=== PATIENT | female | born 1980 | race Caucasian/White ===

== ENCOUNTER 2020-02-08 09:41 | Outpatient (CLI) | payer OTHER, SELFPAY ==
--- NOTE | 2020-02-08 10:04 | EST_ITS ---
Patient Info Name: Noemi De La Cruz Age: 39 years : 1980 Gender: Female Ht: 67 in Wt: 219 lbs BSA: 2.20 m2 Exam Date: 02/08/2020 10:23 AM Exam Location: [facility] Stress Patient Status: Outpatient Admit Date: 02/08/2020 Staff Ordering Physician: Aleta Ortega Attending Provider: Aleta Ortega Exercise Technologist: Karrie Banegas RDCS Exercise Physician: Roosevelt Delarosa DO Exam Type: CA stress test treadmill Study Info Indications R07.9 - Chest pain, unspecified A treadmill exercise stress test was performed. Summary 1. 1. Negative Constantin exercise stress test for ischemic ST changes by ECG criteria. 2. 2. Good functional capacity, achieving 12 METs of workload. 3. 3. Appropriate HR response to exercise. 4. 4. Appropriate HR recovery at 1 minute post exercise. 5. 5. No imaging with stress testing. 6. 6. Patient informed of the above results. Protocol: Constantin Stress ECG Details Stage: REST Duration (min): 9 min : 59 sec Speed (mph): 0.0 Grade (%): 0 HR (bpm): 74 SBP (mmHg): 110 DBP (mmHg): 66 METS: --- Stage: REST Duration (min): 10 min : 11 sec Speed (mph): 0.0 Grade (%): 0 HR (bpm): 76 SBP (mmHg): 110 DBP (mmHg): 66 METS: --- Stage: STAGE 1 Duration (min): 1 min : 0 sec Speed (mph): 1.7 Grade (%): 10 HR (bpm): 109 SBP (mmHg): 110 DBP (mmHg): 66 METS: --- Stage: STAGE 1 Duration (min): 2 min : 0 sec Speed (mph): 1.7 Grade (%): 10 HR (bpm): 106 SBP (mmHg): 110 DBP (mmHg): 66 METS: --- Stage: STAGE 1 Duration (min): 3 min : 0 sec Speed (mph): 1.7 Grade (%): 10 HR (bpm): 111 SBP (mmHg): 146 DBP (mmHg): 79 METS: --- Stage: STAGE 2 Duration (min): 1 min : 0 sec Speed (mph): 2.5 Grade (%): 12 HR (bpm): 121 SBP (mmHg): 146 DBP (mmHg): 79 METS: --- Stage: STAGE 2 Duration (min): 2 min : 0 sec Speed (mph): 2.5 Grade (%): 12 HR (bpm): 121 SBP (mmHg): 173 DBP (mmHg): 79 METS: --- Stage: STAGE 2 Duration (min): 3 min : 0 sec Speed (mph): 2.5 Grade (%): 12 HR (bpm): 121 SBP (mmHg): 173 DBP (mmHg): 79 METS: --- Stage: STAGE 3 Duration (min): 1 min : 0 sec Speed (mph): 3.4 Grade (%): 14 HR (bpm): 138 SBP (mmHg): 142 DBP (mmHg): 78 METS: --- Stage: STAGE 3 Duration (min): 2 min : 0 sec Speed (mph): 3.4 Grade (%): 14 HR (bpm): 150 SBP (mmHg): 142 DBP (mmHg): 78 METS: --- Stage: STAGE 3 Duration (min): 3 min : 0 sec Speed (mph): 3.4 Grade (%): 14 HR (bpm): 161 SBP (mmHg): 139 DBP (mmHg): 75 METS: --- Stage: STAGE 4 Duration (min): 1 min : 0 sec Speed (mph): 4.2 Grade (%): 16 HR (bpm): 171 SBP (mmHg): 139 DBP (mmHg): 75 METS: --- Stage: STAGE 4 Duration (min): 1 min : 0 sec Speed (mph):
== END 2020-02-08 09:42 | disposition home or self-care (01) ==
LOC: ANHCARD 09:43
PROVIDERS: PCP Family Medicine; Visit Provider Physician Assistant Medical
DX: R07.9 Chest pain, unspecified (principal)
CPT/HCPCS: 93017

== ENCOUNTER → 2020-09-09 15:14 | Outpatient (CLI) | payer OTHER, SELFPAY ==
--- NOTE | ~2020-09-09 | MM_ITS ---
EXAMINATION: MM screening [facility]in BI w abdoul HISTORY: Screening TECHNIQUE: Craniocaudal and mediolateral oblique 3-D tomosynthesis images were obtained and synthetic 2-D images were generated. CAD analysis was submitted and interpreted. COMPARISON: No prior mammogram is available for comparison at this institution. BREAST PARENCHYMAL COMPOSITION: There are scattered areas of fibroglandular density. FINDINGS: There is no evidence of suspicious mass, calcification, or architectural distortion to sugg est malignancy in either breast. There has been no suspicious interval change. IMPRESSION: 1. No mammographic evidence of malignancy. 2. Recommend routine screening mammography in one year. BI-RADS Category 1: Negative Reviewed, dictated and finalized at location A. URCE DEVELOPMENT DIRECTOR
== END ==
PROVIDERS: Visit Provider Obstetrics & Gynecology
DX: Z12.31 Encounter for screening mammogram for malignant neoplasm of breast (principal)
CPT/HCPCS: 77063; 77067

== ENCOUNTER → 2021-09-11 16:13 | Outpatient (CLI) | payer OTHER, SELFPAY ==
--- NOTE | ~2021-09-11 | MM_ITS ---
EXAMINATION: MM screening [facility] BI w abdoul HISTORY: Screening TECHNIQUE: Craniocaudal and mediolateral oblique 3-D tomosynthesis images were obtained and synthetic 2-D images were generated. CAD analysis was submitted and interpreted. COMPARISON: 09/09/2020 BREAST PARENCHYMAL COMPOSITION: There are scattered areas of fibroglandular density. FINDINGS: There is no evidence of suspicious mass, calcification, or architectural distortion to sugg est malignancy in either breast. There has been no suspicious interval change. IMPRESSION: 1. No mammographic evidence of malignancy. 2. Recommend routine screening mammography in one year. BI-RADS Category 1: Negative Reviewed, dictated and finalized at location A. AULIC CORRUGATING MACHINE OPERATOR
== END ==
PROVIDERS: Visit Provider Obstetrics & Gynecology
DX: Z12.31 Encounter for screening mammogram for malignant neoplasm of breast (principal)
CPT/HCPCS: 77063; 77067

== ENCOUNTER 2022-08-23 16:22 | Outpatient (CLI) | payer OTHER, SELFPAY ==
[2022-08-23 16:31] LABS: Hematocrit 41.5 % (37.0-47.0); Hemoglobin 13.8 g/dL (12.0-15.0); Mean Corpuscular HGB Conc 33.3 g/dl (32-36); Mean Corpuscular Volume 90.2 fl (80-100); Mean Platelet Volume 11.1 fl (7.4-10.4); Platelet Count Result 246 k/mm3 (150-375); Red Cell Distribution Width 13.6 % (11.5-14.5); White Blood Count 7.9 K/mm3 (4.5-10.0)
== END 2022-08-23 16:23 | disposition home or self-care (01) ==
LOC: ANHLAB 16:23
PROVIDERS: PCP Family Medicine; Visit Provider Obstetrics & Gynecology
DX: R10.31 Right lower quadrant pain (principal); Z01.818 Encounter for other preprocedural examination
CPT/HCPCS: 36415; 85027; 86850; 86900; 86901

== ENCOUNTER 2022-08-30 00:34 | Day surgery (SDC) | payer OTHER, SELFPAY ==
[2022-08-16 17:17] VITALS: BMI 35.6
--- NOTE | 2022-08-16 17:41 | PC.NURSE ---
Report to the Outpatient Waiting Room, entrance under the green pavilion located off [facility], at 0630 on 08-30-22. Planned Procedure Time: 0830. Time changes happen often and if your time is changed the preop area will call you the afternoon before. - You and your visitor will be asked to self-screen and do not enter if you have any COVID symptoms. - Only one visitor is requested with a max of two and NO children visitors are allowed at this time. - The patient visitor may be requested to leave or wait in car when not with patient due to distancing restrictions. - A mask is optional within the hospital at this time. Patients may have clear liquids (water, carbonated beverages, clear teas, apple juice) until 3 hours prior to surgery with a maximum of 20 ounces. 0530 - No food from midnight until time of surgery - Infants may have breast milk until 4 hours before surgery, formula 6 hours prior to surgery. - Children will be allowed to drink immediately following surgery. If applicable, please bring a bottle or sippy cup to assist with drinking. Juice, water, soda, and popsicles are readily available. For infants on formula, please bring formula the day of surgery. Pacifiers are allowed. Take the following medications with a SIP of water the morning of surgery: Tramadol if needed Bring albuterol inhaler DOS if not DO NOT STOP ANY OF YOUR OTHER PRESCRIPTION MEDICATIONS PRIOR TO SURGERY ?EXCEPT THE FOLLOWING Medications to discontinue per physician: vitamins and supplements Date to take last dose: 08-27-22 Please no make-up, nail sammarinese, hairspray, perfume, deodorant, or body powder the day of surgery. No jewelry (including any body piercings) or valuables the day of surgery, leave them at home. Please take a shower or bath the night before, or the morning of, surgery with an antibacterial soap. Wear comfortable, loose fitting clothing. Children are encouraged to wear pajamas. - Jewelry must be removed prior to entering the operating room. Rings and piercings that are not removed may be cut off. - The hospital will not accept responsibility for valuables. - Please leave all valuables, including medications, at home the day of surgery. If you are going home after surgery, a licensed service parts driver must drive you home. - NO public transportation without another adult if you receive anesthesia. - We recommend that an adult stay with you for 24 hours following discharge. - We also recommend that you do not drive, make important decision, drink alcoholic beverages, or take any drugs that were not prescribed by your health care provider for at least 24 hours after your discharge time. For Pediatric surgeries, we recommend two adults accompany the child home. Follow any additional instructions given to you from your surgeon. If you or anyone in your household have experienced Covid symptoms in the past week, please notify your surgeon or the nurse liaison at the phone number below for possible testing. Telephone instructions given to Noemi De La Cruz and asked if any additional questions and then verbalized understanding. Patient advised to call surgeon office or pre surgery nurse liaison [phone] if any additional questions.
[2022-08-30] VITALS (8 sets, daily range): BP systolic 90–117; BP diastolic 43–75; PULSE 51–99; RESP 10–16; TEMP 36.3–36.4; O2SAT 96–100
--- NOTE | 2022-08-30 06:42 | WPDANESEPPF ---
Anes - Initial Pre Proc Eval Procedure: Operation Date: 08/30/22 08:00 Proposed Procedures p Robotic Assisted Laparoscopic Right Salpingo Oophorectomy - Alexis Domingo MD Date/Time: 08/30/22 06:42 Surgeon: Alexis Domingo MD Pre Op Diagnosis: right lower quad pain Patient Data Age: 42 Gender: F Height: 1.7 m Weight: 103.42 kg Allergies Allergy/AdvReac Type Severity Reaction Status Date / Time codeine Allergy Intermediate Nausea And Verified 08/21/22 09:20 Vomiting tramadol AdvReac Intermediate Dizziness Verified 08/21/22 09:20 Home Medications Medication Instructions Recorded Confirmed Type albuterol sulfate 90 mcg/actuation 1 inh inhalation Q4H PRN shortness 09/01/20 08/16/22 Rx aerosol inhaler of breath or wheezing #6.7 grams tramadol 50 mg tablet 50 mg PO Q6H PRN pain #20 tabs 07/26/22 08/16/22 Rx acidophilus 100 million 1 cap PO DAILY 08/16/22 08/16/22 History cell-pectin, citrus 10 mg capsule ascorbic acid (vitamin C) 250 mg 250 mg PO DAILY 08/16/22 08/16/22 History tablet cholecalciferol (vitamin D3) 125 125 mcg PO DAILY 08/16/22 08/16/22 History mcg (5,000 unit) tablet (Vitamin D3) multivit with minerals-iron 18 1 tablet PO DAILY 08/16/22 08/16/22 History mg-folic ac 400 mcg-vit K 25 mcg tablet (Adults Multivitamin) omega-3 fatty acids 1,250 mg PO DAILY 08/16/22 08/16/22 History Patient hx anesthesia problems: none Family hx anesthesia problems: none Results Review: All pre-operative results and documents have been reviewed as part of the pre-operative evaluation. [facility] Past Medical History Medical History BMI 35.0-35.9,adult Broken arm (~1986) COVID-19 History of broken collarbone (~2004) History of broken leg (~1991) Screening mammogram, encounter for Vaginal delivery 01/17/07 03/24/13 Surgical History Surgical History History of cholecystectomy (03/06/19) History of gynecologic surgery (11/01/16) hscope d&c/endometrial ablation/tubal ligation--menometrorrhagia, dysmenorrhea, undesired fertility--benign History of nasal surgery (~1995) History of tonsillectomy (~1996) History of tubal ligation (11/01/16) Family History Family History Father Family history of throat cancer Hypertension Mother Family history of malignant neoplasm of uterus Grandparent Diabetes mellitus maternal grandmother Other No family history of hypertension Social History Social History Smoking status: Never smoker Second hand tobacco smoke exposure: No Alcohol intake: current Alcohol use details: occasionally maybe monthly per patient Substance use: never Substance use type: does not use Living arrangements: other Additional living arrangements comments: Occupation/Education: occupation Additional occupation/education comments: teacher Gender identity (if verbalized by the patient): Female Sexual Orientation (if Verbalized by the Patient): Straight or Heterosexual Spiritual care concerns: No Anes - Eval Final PreProcedure Day of Procedure 08/30/22 06:42 Patient weight: obese Heart: regular rate and rhythm Lungs: clear to auscultation Airway: Mallampati scale class II Neurological: alert and oriented Last oral intake: >/= 8 hours ASA classification: II Emergent: no Anesthetic plan: proceed Anesthesia type and monitoring: general ETT and standard monitoring Results Review: All pre-operative results and documents have been reviewed as part of the pre-operative evaluation. Informed Consent: The patient's anesthetic plan and its attendant risks and benefits were discussed with the patient/family/POA. Questions were solicited and answers provided to the satisfaction of the patient/family/POA.
[2022-08-30] MEDS: KETOROLAC 15 MG/ML VIAL (*BKC) IV PUSH (06:45)
[2022-08-30] MEDS: LACTATED RINGERS 1,000 ML 30 ML IV CONT ×2 (06:45→09:08)
--- NOTE | 2022-08-30 06:48 | WPDHPUPDATE1 ---
History and Physical Update Update Date/Time: 08/30/22 06:48 History and Physical has been reviewed, including an updated exam of the patient. There are NO changes in the patient's condition. Risks, benefits, and alternatives have been discussed and questions answered. Patient agrees to proceed with procedure.
[2022-08-30] MEDS: ACETAMINOPHEN 500 MG TABLET 1000 MG PO (06:50)
[2022-08-30] MEDS: SCOPOLAMINE 1.5 MG PATCH TRANSDERM (06:59)
--- NOTE | 2022-08-30 08:58 | W.PM.PROC2 ---
Procedure Note - Detailed Date of Procedure 08/30/22 Pre-op Diagnosis right lower quad pain Post-op Diagnosis Same Procedure Performed 1. Robotic assisted laparoscopic right salpingo-oophorectomy Surgeon Alexis Domingo MD Anesthesia General Findings 1. Uterus mildly enlarged no abnormalities 2. Left adnexa with evidence of prior tubal removal 3. Right adnexa with ovarian cyst Description of Procedure patient was prepped and draped usual manner for this procedure. Cervical instruments were placed for uterine mobility later in the case. Abdominal trocar sites were placed under direct visualization and attached to the de Leo system. Instruments were placed under direct visualization. Surgeon moved to the console evaluation of the pelvis revealed findings as noted above. Using the cautery instrument the mesial salpinx was cauterized and cut and the right tube was removed. Infundibulopelvic ligament was then cauterized and cut the ovary was removed without difficulty. Wesly was placed over the surgical site though there was no bleeding. Gas was allowed to escape incisions approximated using 4-0 Monocryl the patient was sent to recovery room in stable condition. Estimated Blood Loss 10 Drains No Packing No Pathology Yes Complications No immediate complications Condition Stable Disposition PACU [facility] Billing Surgery - Charge Forward: Surgery Billing
[2022-08-30] MEDS: oxyCODONE HCL (*CRX) 2.5 MG TAB IR PO (10:10)
== END 2022-08-30 10:52 | disposition home or self-care (01) ==
PROVIDERS: PCP Family Medicine; Visit Provider Obstetrics & Gynecology
PROC: 8E0W4CZ Robotic Assisted Procedure of Trunk Region, Percutaneous Endoscopic Approach (ICD-10-PCS; CPT 49320; principal; 2022-08-30 08:00)
DX: N83.291 Other ovarian cyst, right side (principal); N83.8 Other noninflammatory disorders of ovary, fallopian tube and broad ligament; Z79.51 Long term (current) use of inhaled steroids; E66.9 Obesity, unspecified
CPT/HCPCS: 58661; 36415; 85027; 86850; 86900; 86901; 88305; A9270; J1100; J1885; J2250; J2405; J2704; J3010; J7030; J7120

== ENCOUNTER → 2022-11-03 07:45 | Outpatient (CLI) | payer OTHER, SELFPAY ==
--- NOTE | ~2022-11-03 | MM_ITS ---
EXAMINATION: MM screening [facility] BI w abdoul HISTORY: Screening mammogram TECHNIQUE: Craniocaudal and mediolateral oblique 3-D tomosynthesis images were obtained and synthetic 2-D images were generated. CAD analysis was submitted and interpreted. COMPARISON: 09/11/2021, 09/09/2020 BREAST PARENCHYMAL COMPOSITION: There are scattered areas of fibroglandular density. FINDINGS: No suspicious mass, calcification, or architectural distortion are identified in either markus ast to suggest malignancy. There has been no suspicious interval change. IMPRESSION: 1. No mammographic evidence of malignancy. 2. Recommend routine screening mammography in one year. BI-RADS Category 1: Negative Reviewed, dictated and finalized at location A.
== END ==
PROVIDERS: PCP Obstetrics & Gynecology; Visit Provider Obstetrics & Gynecology
DX: Z12.31 Encounter for screening mammogram for malignant neoplasm of breast (principal)
CPT/HCPCS: 77063; 77067

== ENCOUNTER 2023-11-14 14:41 | Outpatient (CLI) | payer OTHER, SELFPAY ==
--- NOTE | ~2023-11-14 | MM_ITS ---
EXAMINATION: MM screening [facility] BI w abdoul HISTORY: Screening mammogram TECHNIQUE: Craniocaudal and mediolateral oblique 3-D tomosynthesis images were obtained and synthetic 2-D images were generated. CAD analysis was submitted and interpreted. COMPARISON: November 03, 2022, September 11, 2021 bilateral screening mammogram examinations BREAST PARENCHYMAL COMPOSITION: There are scattered areas of fibroglandular density. FINDINGS: There is no evidence of suspicious mass, calcification, or architectural distortion to sugg est malignancy in either breast. There has been no suspicious interval change. IMPRESSION: 1. No mammographic evidence of malignancy. 2. Recommend routine screening mammography in one year. BI-RADS Category 1: Negative Reviewed, dictated and finalized at location B.
== END 2023-11-14 14:42 ==
LOC: MICIMG 14:42
PROVIDERS: PCP Obstetrics & Gynecology; Visit Provider Obstetrics & Gynecology
DX: Z12.31 Encounter for screening mammogram for malignant neoplasm of breast (principal)
CPT/HCPCS: 77063; 77067

== ENCOUNTER 2025-01-13 14:08 | Outpatient (CLI) | payer OTHER, SELFPAY ==
--- NOTE | ~2025-01-13 | MM_ITS ---
EXAMINATION: MM screening konstantin BI w abdoul HISTORY: Screening TECHNIQUE: Craniocaudal and mediolateral oblique 3-D tomosynthesis images were obtained and synthetic 2-D images were generated. CAD analysis was submitted and interpreted. COMPARISON: Comparison to multiple prior studies sequentially, with oldest reviewed study dated 11/2020. BREAST PARENCHYMAL COMPOSITION: Not dense: There are scattered areas of fibroglandular density. FINDINGS: There is no evidence of suspicious mass, calcification, or architectural distortion to sugg est malignancy in either breast. There has been no suspicious interval change. IMPRESSION: 1. No mammographic evidence of malignancy. 2. Recommend routine screening mammography in one year. BI-RADS Category 1: Negative Reviewed, dictated and finalized at location A.
== END 2025-01-13 14:09 | disposition home or self-care (01) ==
LOC: MICIMG 14:08
PROVIDERS: PCP Obstetrics & Gynecology; Visit Provider Obstetrics & Gynecology
DX: Z12.31 Encounter for screening mammogram for malignant neoplasm of breast (principal)
CPT/HCPCS: 77063; 77067